=== PATIENT | male | born 2000 | race Caucasian/White ===

== ENCOUNTER 2022-01-31 15:50 | Emergency (ER) | payer SELFPAY ==
[2022-01-31 16:01] VITALS: BP 119/69; PULSE 73; RESP 18; TEMP 98.9; BMI 22.4
== END 2022-01-31 17:30 | disposition left against medical advice (07) ==
LOC: JER 15:50
DX: R21 Rash and other nonspecific skin eruption (principal)
CPT/HCPCS: 99281-25